=== PATIENT | female | born 1975 | race Caucasian/White ===

== ENCOUNTER 2016-12-16 08:27 | Emergency (ER) | payer OTHER ==
--- NOTE | 2016-12-16 09:12 | C.PDOC ---
History Of Present Illness 41 y/o female presents to the ED complaining of sore throat and fever x 3 days. She denies any ear pain, chest pain, abdominal pain, or other complaints. Time Seen by Provider: 12/16/16 08:36 Chief Complaint (Nursing): ENT Problem History Per: Patient History/Exam Limitations: no limitations Onset/Duration Of Symptoms: Days (3), Gradual, Persistent Current Symptoms Are (Timing): Still Present Recent travel outside of the [place]: No Past Medical History Reviewed: Historical Data, Nursing Documentation, Vital Signs Vital Signs: Last Vital Signs Temp 100.3 F H 12/16/16 10:09 Pulse 92 H 12/16/16 10:09 Resp 17 12/16/16 10:09 BP 109/68 12/16/16 10:09 Pulse Ox 96 12/16/16 10:09 - Medical History PMH: No Chronic Diseases Surgical History: Cholecystectomy (x3) Family History: States: No Known Family Hx - Social History Hx Tobacco Use: No Hx Alcohol Use: No Hx Substance Use: No Review Of Systems Except As Marked, All Systems Reviewed And Found Negative. Constitutional: Positive for: Fever ENT: Positive for: Throat Pain. Negative for: Ear Pain Cardiovascular: Negative for: Chest Pain Gastrointestinal: Negative for: Abdominal Pain Physical Exam - Physical Exam Appears: Non-toxic, No Acute Distress Skin: Normal Color, Warm, Dry, No Rash Head: Atraumatic, Normacephalic Eye(s): bilateral: Normal Inspection, PERRL Ear(s): Bilateral: Normal Nose: Normal Oral Mucosa: Moist Throat: Erythema (pharyngeal and tonsillar), Exudate (pharyngeal and tonsillar) Neck: Normal ROM, Supple Lymphatic: Adenopathy Chest: Symmetrical Cardiovascular: Rhythm Regular Respiratory: Normal Breath Sounds, No Rales, No Rhonchi, No Wheezing Gastrointestinal/Abdominal: Normal Exam, Soft, No Tenderness Extremity: Normal ROM Neurological/Psych: Oriented x3, Normal Speech, Normal Cognition ED Course And Treatment O2 Sat by Pulse Oximetry: 99 (ra) Pulse Ox Interpretation: Normal Progress Note: Rapid Strep Test was ordered. Patient was treated with Decadron PO and Motrin PO. Rapid strep (+). Treated with zithromax 500 mg PO Reassessment Condition: Improved Disposition Counseled Patient/Family Regarding: Studies Performed, Diagnosis, Need For Followup, Rx Given - Disposition Referrals: [facility]. [facility] [Outside] [facility] [Outside] Disposition: HOME/ ROUTINE Disposition Time: 10:00 Condition: GOOD Additional Instructions: Follow up with clinic or PMD for further evaluation Prescriptions: Azithromycin [Zithromax] 250 mg PO DAILY #4 tab Instructions: Strep Throat (ED) Print Language: ALBANIAN - POA Present On Arrival: None - Clinical Impression Clinical Impression: Strep pharyngitis - PA / [employer] / Resident Statement MD/DO has reviewed & agrees with the documentation as recorded. - Scribe Statement The provider has reviewed the documentation as recorded by the Scribe (Reyna Layton) All medical record entries made by the Scribe were at my direction and personally dictated by me. I have reviewed the chart and agree that the record accurately reflects my personal performance of the history, physical exam, medical decision making, and the department course for this patient. I have also personally directed, reviewed, and agree with the discharge instructions and disposition.
[2016-12-16 10:10] VITALS: BP 109/68; PULSE 92; RESP 17; TEMP 100.3
[2016-12-16 15:11] VITALS: O2SAT 99
== END 2016-12-16 10:13 | disposition home or self-care (01) ==
LOC: C.ER 08:27
DX: J02.0 Streptococcal pharyngitis (principal); B95.0 Streptococcus, group A, as the cause of diseases classified elsewhere
CPT/HCPCS: 87430; 99284; J8540

== ENCOUNTER 2018-10-05 10:09 | Emergency (ER) | payer OTHER ==
[2018-10-05 10:15] VITALS: BMI 30.5
[2018-10-05 10:18] VITALS: O2SAT 100
--- NOTE | 2018-10-05 10:39 | C.PDOC ---
History Of Present Illness 43 year old female with no significant PMHx presents complaining of sharp, 7/10, right sided headache x 3 days. Associated symptoms include right periorbital pain with intermittent blurry vision, and nausea. Denies having this kind of headache in the past. ROS POSITIVES: Headache, nausea, vision changes, sick contacts, dizziness (mild) NEGATIVES Fever, chills, Chest pain, SOB, abdominal pain, vomiting, changes in bowel habits, urinary symptoms, recent upper respiratory infection, light/Sound sensitivity, aura PMHx: Denies PSHx: x 3 Allergies: Penicillin & Nuts (rash, Anaphylaxis) SocialHx: Denies tobacco, EtoH, and Illicit Drug use FamHx: HTN Meds: Tylenol, Ibuprofen PRN. <Yashira Frey - Last Filed: 10/05/18 12:10> <Yashira Frey - Last Filed: 10/05/18 12:10> <Cristian Walls - Last Filed: 10/05/18 12:12> Time Seen by Provider: 10/05/18 10:38 Chief Complaint (Nursing): Headache Past Medical History Reviewed: Historical Data, Nursing Documentation, Vital Signs Vital Signs: Last Vital Signs Temp 97.7 F 10/05/18 10:15 Pulse 71 10/05/18 10:15 Resp 18 10/05/18 10:15 BP 137/85 10/05/18 10:15 Pulse Ox 100 10/05/18 10:15 - Medical History PMH: No Chronic Diseases Surgical History: (x3) Family History: States: No Known Family Hx - Social History Hx Tobacco Use: No Hx Alcohol Use: No Hx Substance Use: No <Yashira Frey - Last Filed: 10/05/18 12:10> Vital Signs: Last Vital Signs Temp 97.7 F 10/05/18 10:15 Pulse 71 10/05/18 10:15 Resp 18 10/05/18 10:15 BP 137/85 10/05/18 10:15 Pulse Ox 100 10/05/18 12:10 <Cristian Walls - Last Filed: 10/05/18 12:12> Review Of Systems Except As Marked, All Systems Reviewed And Found Negative. (As per HPI) <Yashira Frey - Last Filed: 10/05/18 12:10> Physical Exam - Physical Exam Appears: Well, Non-toxic, No Acute Distress Skin: Normal Color, Warm Head: Atraumatic, Normacephalic, No Tenderness, No Swelling, No Abrasion, No Laceration Eye(s): bilateral: Normal Inspection, PERRL, EOMI, right: Photophobia (Mild ) Ear(s): Bilateral: Normal Nose: Other (Hypertrophic Turbinates B/L ) Oral Mucosa: Moist Tongue: Normal Appearing Lips: Normal Appearing Teeth: Normal Dentition Throat: Normal Neck: Normal Lymphatic: No Adenopathy Cardiovascular: Rhythm Regular Respiratory: Normal Breath Sounds, No Accessory Muscle Use, No Rales, No Rhonchi Gastrointestinal/Abdominal: Bowel Sounds, Soft, No Tenderness Extremity: No Pedal Edema, Capillary Refill Pulses: Left Carotid: Normal, Right Carotid: Normal Neurological/Psych: Oriented x3, Normal Speech, Normal Cognition, Normal Cranial Nerves, Normal Motor, Normal Sensation Gait: Steady <Yashira Frey - Last Filed: 10/05/18 12:10> ED Course And Treatment O2 Sat by Pulse Oximetry: 100 <Yashira Frey Last Filed: 10/05/18 12:10> Medical Decision Making Medical Decision Making: Headache Ddx: Sinus headache vs Cluster Mgmt: Sudafed 30mg PO ONCE Ibuprofen 600mg PO ONEC Reassess <Yashira Frey Last Filed: 10/05/18 12:10> Medical Decision Making: prob sinus headache improved with ED tx <Cristian Walls - Last Filed: 10/05/18 12:12> Disposition <Yashira Frey - Last Filed: 10/05/18 12:10> Doctor Will See Patient In The: Office Counseled Patient/Family Regarding: Studies Performed, Diagnosis - Disposition Disposition Time: 12:12 <Cristian Walls Last Filed: 10/05/18 12:12> - Disposition Referrals: [facility] [Outside] Disposition: HOME/ ROUTINE Condition: GOOD Prescriptions: Fluticasone Propionate [Flonase] 1 spr NS Q12H #1 bottle Instructions: Sinus Headache (DC), Headache, Adult (DC) Forms: [employer] (Maltese) - Clinical Impression Clinical Impression: Headache
[2018-10-05 12:26] VITALS: BP 135/84; PULSE 70; RESP 16; TEMP 97.8
== END 2018-10-05 12:22 | disposition home or self-care (01) ==
LOC: C.ER 10:09
DX: R51 Headache (principal)

== ENCOUNTER 2018-12-23 18:46 | Outpatient (CLI) | payer SELFPAY | END 2018-12-23 18:47 | disposition home or self-care (01) | LOC: C.SLEEP 18:47 | DX: R06.83 Snoring (principal) ==